=== PATIENT | female | born 1985 | race Two or more races ===

== ENCOUNTER 2020-06-09 06:07 | Outpatient (REF) | payer OTHER, SELFPAY | END 2020-06-09 06:08 | disposition home or self-care (01) | LOC: HO.HMGCLDS 06:07 | PROVIDERS: PCP Internal Medicine; Visit Provider Internal Medicine | DX: Z20.828 Contact with and (suspected) exposure to other viral communicable diseases (principal) | CPT/HCPCS: C9803; U0003 ==